=== PATIENT | female | born 1955 | race Caucasian/White ===

== ENCOUNTER 2020-06-11 09:47 | Emergency (ER) | payer MEDICARE, OTHER ==
[~2020-06-11 09:47] MED LIST: BACTRIM DS TAB1 EACH PO; BANOPHEN25 MG PO; BENADRYL ITCH28.3 G1 TP; BENADRYL25 MG PO; BIOFREEZE89 ML TOP; CEPHALEXIN500 MG PO; CETIRIZINE HCL10 MG PO; CLARITIN10 MG PO; CYMBALTA60 MG PO; FLONASE ALLER15.8 ML; GLUCOPHAGE 500500 MG PO; HYDROCHLOROTHIA25 MG PO; HYDROCREAM28.4 GM TP; IBUPROFEN600 MG PO; INVANZ 1 GM VIAL1 GM IV; K-DUR TAB 10 M10 MEQ PO; LISINOPRIL-HCT1 EAC1 PO; LYRICA75 MG PO; MEDROL DOSEPAK 24 MG PO; MELATONIN5 M2 PO; METOPROLOL TART25 MG PO; MIRALAX PACK 171 PKT PO; NEURONTIN600 MG PO; NIFEDIPINE ER60 M1 PO; NORCO 5-325 TA1 EACH PO; NORVASC10 MG PO; OMEPRAZOLE40 MG PO; PERCOCET 10-321 EACH PO; PRILOSEC20 MG PO; PROZAC10 MG PO; PROZAC20 MG PO; TYLENOL325 MG PO; VALISONE 0.1% O15 GM TOP; VANCOMYCIN1 GM/2501 IV; VIBRAMYCIN100 MG PO; VITAMIN D32000 UNIT PO; WELLBUTRIN XL300 MG PO; XARELTO10 MG PO; ZESTRIL10 MG PO; ZESTRIL40 MG PO; ZYRTEC10 M3 PO
[2020-06-11] MEDS ORDERED: AQUAPHOR396 GM TP (10:20)
[2020-06-11] MEDS ORDERED: PREDNISONE 50 M50 MG PO (10:20)
[2020-06-11] MEDS ORDERED: VISTARIL25 MG PO (10:20)
== END 2020-06-11 10:47 | disposition home or self-care (01) ==
LOC: ER1 09:47
DX: L30.9 Dermatitis, unspecified (principal); I10 Essential (primary) hypertension; J44.9 Chronic obstructive pulmonary disease, unspecified; F17.200 Nicotine dependence, unspecified, uncomplicated; Z79.899 Other long term (current) drug therapy
CPT/HCPCS: 96372; 99282; J2930

== ENCOUNTER 2020-06-13 09:43 | Emergency (ER) | payer MEDICARE, OTHER ==
[~2020-06-13 09:43] MED LIST changes: +AQUAPHOR396 GM TP; +PREDNISONE 50 M50 MG PO; +VISTARIL25 MG PO
[2020-06-13 11:10] LABS: HEMOGLOBIN 12.6 gm/dl (12.3-15.3); RED BLOOD COUNT 4.21 M/UL (4.00-5.10); WHITE BLOOD COUNT 19.8 K/UL (4.5-11.0)
[2020-06-13 12:14] LABS: BUN/CREATININE RATIO 43 (0-10)
[2020-06-13] MEDS ORDERED: PREDNISONE20 MG PO (14:20)
[2020-06-13] MEDS ORDERED: OMNICEF 300 MG300 MG PO (14:20)
[2020-06-13] MEDS ORDERED: K-DUR TAB 20 M20 MEQ PO (14:20)
[2020-06-13] MEDS ORDERED: ZITHROMAX250 MG PO (14:20)
== END 2020-06-13 16:20 | disposition home or self-care (01) ==
LOC: ER1 09:43
PROVIDERS: Emergency Medicine
DX: J44.1 Chronic obstructive pulmonary disease with (acute) exacerbation (principal); E87.6 Hypokalemia; Z20.822 Contact with and (suspected) exposure to COVID-19; E83.42 Hypomagnesemia; I10 Essential (primary) hypertension; F17.200 Nicotine dependence, unspecified, uncomplicated; K21.9 Gastro-esophageal reflux disease without esophagitis
CPT/HCPCS: 71045; 80053; 82550; 82553; 83735; 83874; 83880; 84484; 85025; 96365; 96367; 96375; 99285; J0696; J2930; J3475; U0002

== ENCOUNTER 2021-03-08 18:55 | Emergency (ER) | payer MEDICARE, OTHER ==
[~2021-03-08 18:55] MED LIST changes: +K-DUR TAB 20 M20 MEQ PO; +OMNICEF 300 MG300 MG PO; +PREDNISONE20 MG PO; +ZITHROMAX250 MG PO
[2021-03-08 20:50] LABS: HEMOGLOBIN 12.4 gm/dl (12.3-15.3); WHITE BLOOD COUNT 11.4 K/UL (4.5-11.0)
[2021-03-08 21:10] LABS: BUN/CREATININE RATIO 26 (0-10)
== END 2021-03-08 22:35 | disposition home or self-care (01) ==
LOC: ER1 18:55
PROVIDERS: Family Medicine; Physician Assistant Medical
DX: L29.9 Pruritus, unspecified (principal); I10 Essential (primary) hypertension
CPT/HCPCS: 80053; 80307; 81001; 85025; 85652; 86140; 99283

== ENCOUNTER 2021-05-09 17:12 | Emergency (ER) | payer MEDICARE, OTHER ==
[2021-05-09 18:05] LABS: RED BLOOD COUNT 4.28 M/UL (4.00-5.10); WHITE BLOOD COUNT 11.8 K/UL (4.5-11.0)
[2021-05-09 21:09] LABS: BUN/CREATININE RATIO 29 (0-10)
== END 2021-05-09 23:15 | disposition home or self-care (01) ==
LOC: ER1 17:12
PROVIDERS: Physician Assistant Medical
DX: R07.9 Chest pain, unspecified (principal); F19.10 Other psychoactive substance abuse, uncomplicated; E11.9 Type 2 diabetes mellitus without complications; I10 Essential (primary) hypertension; F17.210 Nicotine dependence, cigarettes, uncomplicated
CPT/HCPCS: 71045; 80053; 80307; 81001; 82550; 82553; 83874; 84439; 84443; 84484; 85025; 93005; 99285; G0480